=== PATIENT | female | born 1990 | race Caucasian/White ===

== ENCOUNTER 2020-04-19 11:33 | Emergency (ER) | payer OTHER ==
[2020-04-19 11:48] VITALS: BP 130/96; PULSE 93
--- NOTE | 2020-04-19 12:00 | EDM.PDOC ---
ED HPI GENERAL MEDICAL PROBLEM - General Chief Complaint: ENT Problem Stated Complaint: DENTAL COMPLAINT Time Seen by Provider: 04/19/20 11:42 Source of Information: Reports: Patient, RN Notes Reviewed History Limitations: Reports: No Limitations - History of Present Illness INITIAL COMMENTS - FREE TEXT/NARRATIVE: Patient is a 30-year-old female who presents to the ED for left upper dental pain. The patient notes that she developed some pain in roughly 2 days ago, but noticed some increased swelling to her cheek on the left side yesterday. She notes that eating is very painful as it hurts quite a bit to chew. She has been using Tylenol and Orajel for pain relief but nothing seems to really be helping much. She does note that she has pretty poor dentition, and that a few are broken off. She did not get much sleep last night due to the pain. She has no fevers or chills, cough/shortness of breath, or any other sick-like symptoms. Patient does not have a regular dentist, but does have the [facility] dental clinic, that she will follow up with tomorrow. 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: - Infectious Disease History Infectious Disease History: Reports: Chicken Pox - Past Surgical History HEENT Surgical History: Reports: Adenoidectomy, Tonsillectomy, Other (See Below) Other HEENT Surgeries/Procedures: wisdom teeth Female Surgical History: Reports: Tubal Ligation Social & Family History - Family History Family Medical History: No Pertinent Family History - Tobacco Use Tobacco Use Status *Q: Current Every Day Tobacco User Years of Tobacco use: 5 Packs/Tins Daily: 0.5 - Caffeine Use Caffeine Use: Reports: Coffee, Energy Drinks, Soda, Tea - Recreational Drug Use Recreational Drug Use: No ED ROS ENT - Review of Systems Review Of Systems: Comprehensive ROS is negative, except as noted in HPI. ED EXAM, ENT - Physical Exam Exam: See Below Exam Limited By: No Limitations General Appearance: Alert, WD/WN, No Apparent Distress Mouth/Throat: Normal Inspection, Normal Gums, Normal Lips, Normal Oropharynx, Dental Pain (Left upper dental pain, multiple teeth with caries, the tooth in question is decayed to the pulp) Head: Atraumatic, Normocephalic Neck: Normal Inspection, Supple, Non-Tender, Full Range of Motion Respiratory/Chest: No Respiratory Distress, Lungs Clear, Normal Breath Sounds, No Accessory Muscle Use, Chest Non-Tender Cardiovascular: Normal Peripheral Pulses, Regular Rate, Rhythm, No Edema Extremities: Normal Inspection, Normal Capillary Refill Neurological: Alert, Oriented, Normal Cognition, No Motor/Sensory Deficits Psychiatric: Normal Affect, Normal Mood Skin: Warm, Dry, Intact, Normal Color, No Rash Course - Vital Signs Last Recorded V/S: Last Vital Signs Temp 98.2 F 04/19/20 11:46 Pulse 93 04/19/20 11:46 Resp 20 04/19/20 11:46 BP 130/96 H 04/19/20 11:46 Pulse Ox 100 04/19/20 11:46 - Re-Assessments/Exams Free Text/Narrative Re-Assessment/Exam: 04/19/20 12:05 Patient presents to the ED for the evaluation of her dental pain. The tooth is decayed away, and does appear to be infected with left-sided cheek swelling. Get her started on some antibiotics, and get her some pain medication for the next few days, I did make it known to her that she will need to follow-up with a dentist, and she agrees to call tomorrow morning to set up an appointment. Departure - Departure Time of Disposition: 11:59 Disposition: Home, Self-Care 01 Condition: Good Clinical Impression: Infected dental caries - Discharge Information *PRESCRIPTION DRUG MONITORING PROGRAM REVIEWED*: Yes *COPY OF PRESCRIPTION DRUG MONITORING REPORT IN PATIENT ARNOLD: No Prescriptions: Amoxicillin/Clavulanate K [Augmentin 875-125 MG] 1 tab PO BID #20 tablet Naproxen [Naprosyn] 500 mg PO Q12HR #14 tab Acetaminophen/HYDROcodone [[place] 325-5 MG] 1 tab PO Q6H PRN #12 tablet PRN Reason: Pain Instructions: Preventive Dental Care, Adult Referrals: PCP,None [Primary Care Provider] - Forms: ED Department Discharge Additional Instructions: You have been evaluated in the ED for your dental pain. You have been provided with a script for Augmentin. This was electronically sent to [facility] pharmacy located near [facility]. The pharmacy that is open today, is only open from 12 to 4 PM, you will need to go there to picker operator these medications and take as prescribed. Please take this medication as directed. (1 tab twice daily for 10 days or until gone). Please note this antibiotic can take up to 48 hours to provide coverage. If you do not notice an improvement in the swelling within 3 days time I recommend you seek care for reevaluation for change in antibiotics. This antibiotic can cause diarrhea, recommend that you start a probiotic while taking this medication. Aleve provides good pain relief for dental pain. Please take 1-2 tabs twice daily as needed for pain. You were given a prescription for Naprosyn, Please take 1 tab every 12 hours for pain relief. You may use hot pack/ ice packs to the affected area as tolerated in 15-20 minute intervals. You will ultimately need to find a dentist to provide definitive management of your dental pain. The [facility] in [place], [place], , is a clinic that has been known to take people that do not have dental insurance, and may provide payment plans. You might want to check with this provider, regarding your dental pain. Please return to the ED if your symptoms change or worsen. Sepsis Event Note (ED) - Evaluation Sepsis Screening Result: No Definite Risk - Focused Exam Vital Signs: Vital Signs Temp Pulse Resp BP Pulse Ox 04/19/20 11:46 98.2 F 93 20 130/96 H 100
== END 2020-04-19 12:14 | disposition home or self-care (01) ==
LOC: JD.ED 11:33
DX: K04.7 Periapical abscess without sinus (principal); K02.9 Dental caries, unspecified; F17.210 Nicotine dependence, cigarettes, uncomplicated
CPT/HCPCS: 99282

== ENCOUNTER 2020-06-16 13:02 | Emergency (ER) | payer OTHER ==
[2020-06-16 13:25] VITALS: BP 168/116; PULSE 102
[2020-06-16] MEDS ORDERED: LORazepam 2 MG/ML SDV IM ONE (13:25)
--- NOTE | 2020-06-16 13:30 | EDM.PDOCBH ---
ED HPI GENERAL MEDICAL PROBLEM - General Chief Complaint: Behavioral/Psych Stated Complaint: PANIC ATTACK Time Seen by Provider: 06/16/20 13:13 Source of Information: Reports: Patient, RN Notes Reviewed History Limitations: Reports: No Limitations - History of Present Illness INITIAL COMMENTS - FREE TEXT/NARRATIVE: Patient is a 30-year-old female who presents to the ED for the evaluation of her panic attack. Patient states she was at work on Monday in the morning, and was talking about having to clean her house all day, when her coworker gave her 2 tablets of Ritalin to try. She did take these, and she states since then she has not been able to get much sleep, and she is having some pretty good anxiety and just notices that her body is trembling/shaking, she states that she cannot focus. Her significant other gave her a 500 mg Of Keppra, this is a medication that she was prescribed in the past, and does not normally take. This did not help the trembling. Other than these symptoms, she has had no fevers or chills, cough/shortness of breath, nausea/vomiting/diarrhea. She has no primary provider. 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 ED EXAM, BEHAVIORAL HEALTH - Physical Exam Exam: See Below Exam Limited By: No Limitations General Appearance: Alert, WD/WN, No Apparent Distress, Anxious (pt does appear to have generalized anxiety) Respiratory/Chest: No Respiratory Distress, Lungs Clear, Normal Breath Sounds, No Accessory Muscle Use, Chest Non-Tender Cardiovascular: Normal Peripheral Pulses, Regular Rate, Rhythm, No Edema Extremities: Normal Inspection, Normal Capillary Refill Neurological: Alert, Normal Mood/Affect, Normal Cognition, Normal Reflexes Psychiatric: Alert, Normal Affect, Normal Cognition, Normal Mood, Oriented Skin Exam: Warm, Dry, Intact, Normal color, No rash COURSE, BEHAVIORAL HEALTH COMP - Course Vital Signs: Last Vital Signs Temp 98.1 F 06/16/20 13:13 Pulse 102 H 06/16/20 13:13 Resp 20 06/16/20 13:13 BP 168/116 H 06/16/20 13:13 Pulse Ox 100 06/16/20 13:13 Orders, Labs, Meds: Medications Discontinued Medications Generic Name Dose Route Start Last Admin Trade Name Freq PRN Reason Stop Dose Admin Lorazepam 1 mg 06/16/20 13:25 06/16/20 13:34 Ativan IM 06/16/20 13:26 1 mg ONETIME ONE Administration Medical Clearance: 06/16/20 13:29 Patient presents to the ED for her anxiety. Since she took the Ritalin, it is likely that she is having a meth type reaction. We will go ahead with 1mg IM Ativan to begin with and re-assess the need for more. 06/16/20 14:06 The patient's anxiety has gotten much better with the 1 mg Ativan, she still feels like she cannot quite focus however I did tell her that this is going to take a little bit more prolonged time to provide her the full benefit, she verbalized understanding. Departure - Departure Time of Disposition: 14:06 Disposition: Home, Self-Care 01 Condition: Good Clinical Impression: Panic attack - Discharge Information *PRESCRIPTION DRUG MONITORING PROGRAM REVIEWED*: Yes *COPY OF PRESCRIPTION DRUG MONITORING REPORT IN PATIENT ARNOLD: No Prescriptions: LORazepam [Ativan] 1 mg PO TID PRN #12 tab PRN Reason: Anxiety Instructions: Panic Attack, [id number] Referrals: PCP,None [Primary Care Provider] - Forms: ED Department Discharge, ED Return to Work/School Form Additional Instructions: You were seen in this ER today for your anxiety/panic attack. You were given a 1 mg IM injection of Ativan and this seemed to work well for you. The tablets that you took from your friend, are a derivative of methamphetamine, highly and strongly recommend that you do not take these medications in the future again. You were given a prescription for Ativan you may use 1 tablet TID as needed for ongoing anxiety/panic. Highly recommend you do so at least for the next day or 2, to help calm your system down. Please return to the ER at any time if symptoms change or worsen. Sepsis Event Note (ED) - Evaluation Sepsis Screening Result: No Definite Risk - Focused Exam Vital Signs: Vital Signs Temp Pulse Resp BP Pulse Ox 06/16/20 13:13 98.1 F 102 H 20 168/116 H 100
== END 2020-06-16 14:07 | disposition home or self-care (01) ==
LOC: JD.ED 13:02
DX: F41.0 Panic disorder [episodic paroxysmal anxiety] (principal)
CPT/HCPCS: 96372; 99283; J2060

== ENCOUNTER 2021-05-24 12:11 | Emergency (ER) | payer OTHER ==
[2021-05-24 12:50] VITALS: BP 155/105; PULSE 95
[2021-05-24] MEDS ORDERED: HYDROmorphone 0.5 MG/0.5 ML Syringe IM ONE (13:03)
== END 2021-05-24 14:25 | disposition home or self-care (01) ==
LOC: SUPCPDRO 12:11 → JD.ED 12:11
DX: R07.89 Other chest pain (principal); F17.210 Nicotine dependence, cigarettes, uncomplicated; Z79.899 Other long term (current) drug therapy; W19.XXXA Unspecified fall, initial encounter
CPT/HCPCS: 71111; 96372; 99284; J1170